=== PATIENT | female | born 1950 | race Caucasian/White ===

== ENCOUNTER 2017-03-01 08:50 | Emergency (ER) | payer OTHER ==
[~2017-03-01] VITALS: Ht 158.8 cm; Wt 112.1 kg
[~2017-03-01 08:50] MED LIST: ADVAIR 500/501 DISK IH; HYDROCHLOROTHIA25 MG PO; LACTULOSE10 GM/151 PO; LATANOPROST2.5 ML BOTH EYES; MIRALAX17 GM PO; PROAIR HFA8.5 GM IH; SIMVASTATIN40 MG PO
[2017-03-01 11:41] LABS: EOSINOPHIL (%) 3.7 % (0-5); EOSINOPHIL COUNT 0.2 K/uL (0-0.3); HEMATOCRIT 42.7 % (36.0-46.0); IMMATURE GRANULOCYTE (%) 0.3 % (0.0-0.7); INSTRUMENT ABS NEUTROPHIL CT 3.4 K/uL; LYMPHOCYTE COUNT 1.7 K/uL (1.0-2.8); MCH 34.5 PG (29.0-34.0); MCHC 33.3 G/DL (30.0-36.0); MCV 103.9 FL (83-99); MEAN PLAT.VOLUME 10.9 uM^3 (9.5-12.4); MONOCYTE (%) 11.2 % (3-12); MONOCYTE COUNT 0.7 K/uL (0-0.8); NEUTROPHIL COUNT 3.4 K/uL (1.8-6.4); PLATELET COUNT 119 K/uL (156-360); RBC DIS.WIDTH-CV 12.5 % (11.8-14.6); RBC DIS.WIDTH-SD 48.1 % (39-53); RED BLOOD COUNT 4.11 M/uL (3.80-5.20)
[2017-03-01 11:52] LABS: CHLORIDE 105 mEq/L (99-109); POTASSIUM 3.6 mEq/L (3.7-5.4); SODIUM 140 mEq/L (136-147)
[2017-03-01 11:54] LABS: GLUCOSE 112 mg/dL (70-99)
[2017-03-01 11:55] LABS: ANION GAP 12 MEQ/L (2-14)
[2017-03-01 11:58] LABS: GFR ESTIMATE (CALCULATED) > 59 mL/min/
[2017-03-01 11:59] LABS: UREA NITROGEN (BUN) 16 mg/dL (9-23)
[2017-03-01] MEDS ORDERED: CLEOCIN300 MG PO (12:24)
[2017-03-01 12:30] LABS: ADD MIUA? YES; BILIRUBIN NEGATIVE; BLOOD NEGATIVE; COLOR YELLOW ((YELLOW)); GLUCOSE (STRIP) NEGATIVE; KETONES NEGATIVE; LEUKOCYTES SMALL; NITRITE NEGATIVE; PROTEIN (STRIP) NEGATIVE; SPECIFIC GRAVITY 1.024 (1.000-1.030)
[2017-03-01 12:44] LABS: BACTERIA NONE SEEN /HPF; EPITHELIAL CELLS 4+ /HPF; MUCUS 2+ /LPF; UCUL ADDED? YES; WHITE BLOOD CELLS 15-20 /HPF (0-5)
[2017-03-01 13:17] VITALS: BP 187/59
== END 2017-03-01 13:18 | disposition home or self-care (01) ==
LOC: EME 08:50
PROVIDERS: Emergency Medicine
DX: L03.116 Cellulitis of left lower limb (principal); L03.115 Cellulitis of right lower limb; E78.5 Hyperlipidemia, unspecified; J44.9 Chronic obstructive pulmonary disease, unspecified
CPT/HCPCS: 71010; 80048; 81003; 83605; 85025; 87040; 87086; 99281; 99285; J7030

== ENCOUNTER 2017-05-05 07:29 | Emergency (ER) | payer OTHER ==
[~2017-05-05] VITALS: Ht 157.5 cm; Wt 108.6 kg
[~2017-05-05 07:29] MED LIST changes: +CLEOCIN300 MG PO
[2017-05-05 08:12] LABS: EOSINOPHIL (%) 3.7 % (0-5); EOSINOPHIL COUNT 0.2 K/uL (0-0.3); HEMATOCRIT 45.3 % (36.0-46.0); IMMATURE GRANULOCYTE (%) 0.2 % (0.0-0.7); LYMPHOCYTE COUNT 2.2 K/uL (1.0-2.8); MCH 34.3 PG (29.0-34.0); MCHC 32.9 G/DL (30.0-36.0); MCV 104.4 FL (83-99); MEAN PLAT.VOLUME 10.7 uM^3 (9.5-12.4); MONOCYTE (%) 15.5 % (3-12); NEUTROPHIL (%) 45.7 % (45-76); PLATELET COUNT 136 K/uL (156-360); RBC DIS.WIDTH-CV 12.9 % (11.8-14.6); RBC DIS.WIDTH-SD 50.2 % (39-53); RED BLOOD COUNT 4.34 M/uL (3.80-5.20); WHITE BLOOD COUNT 6.5 K/uL (4.1-10.2)
[2017-05-05 08:15] LABS: CHLORIDE 107 mEq/L (99-109); POTASSIUM 4.1 mEq/L (3.7-5.4); SODIUM 142 mEq/L (136-147)
[2017-05-05 08:17] LABS: GLUCOSE 116 mg/dL (70-99)
[2017-05-05 08:18] LABS: ANION GAP 9 MEQ/L (2-14)
[2017-05-05 08:21] LABS: GFR ESTIMATE (CALCULATED) > 59 mL/min/
[2017-05-05 08:22] LABS: UREA NITROGEN (BUN) 17 mg/dL (9-23)
[2017-05-05] MEDS ORDERED: CLEOCIN300 MG PO (08:39)
[2017-05-05 08:50] VITALS: BP 156/64
== END 2017-05-05 09:23 | disposition home or self-care (01) ==
LOC: EME 07:29
PROVIDERS: Emergency Medicine
DX: L03.116 Cellulitis of left lower limb (principal); L03.115 Cellulitis of right lower limb; E78.00 Pure hypercholesterolemia, unspecified; J44.9 Chronic obstructive pulmonary disease, unspecified
CPT/HCPCS: 80048; 85025; 99281; 99284

== ENCOUNTER 2017-09-14 08:52 | Emergency (ER) | payer OTHER ==
[~2017-09-14] VITALS: Ht 157.5 cm; Wt 113.9 kg
[2017-09-14 09:34] LABS: HEMATOCRIT 41.9 % (36.0-46.0); HEMOGLOBIN 14.6 G/DL (11.9-15.5); MCH 36.4 PG (29.0-34.0); MCHC 34.8 G/DL (30.0-36.0); MCV 104.5 FL (83-99); PLATELET COUNT 93 K/uL (156-360); RBC DIS.WIDTH-CV 13.4 % (11.8-14.6); RBC DIS.WIDTH-SD 51.8 % (39-53); RED BLOOD COUNT 4.01 M/uL (3.80-5.20); WHITE BLOOD COUNT 5.9 K/uL (4.1-10.2)
[2017-09-14 09:44] LABS: CHLORIDE 100 mEq/L (99-109); POTASSIUM 3.6 mEq/L (3.7-5.4); SODIUM 139 mEq/L (136-147)
[2017-09-14 09:46] LABS: GLUCOSE 123 mg/dL (70-99)
[2017-09-14 09:50] LABS: CREATININE 0.8 mg/dL (0.6-1.3); GFR ESTIMATE (CALCULATED) > 59 mL/min/
[2017-09-14 09:51] LABS: UREA NITROGEN (BUN) 18 mg/dL (9-23)
[2017-09-14] MEDS ORDERED: KEFLEX500 MG PO (10:24)
[2017-09-14 10:38] VITALS: BP 196/92
== END 2017-09-14 10:39 | disposition home or self-care (01) ==
LOC: EME 08:52
PROVIDERS: Emergency Medicine
DX: L03.115 Cellulitis of right lower limb (principal); L03.116 Cellulitis of left lower limb; I89.0 Lymphedema, not elsewhere classified; E78.5 Hyperlipidemia, unspecified; J44.9 Chronic obstructive pulmonary disease, unspecified; E66.9 Obesity, unspecified; Z68.42 Body mass index [BMI] 45.0-49.9, adult
CPT/HCPCS: 80048; 85027; 99281; 99284

== ENCOUNTER 2017-11-19 11:57 | Inpatient (IN) | payer OTHER ==
[~2017-11-19] VITALS: Ht 160 cm; Wt 112.4 kg
[~2017-11-19 11:57] MED LIST changes: +KEFLEX500 MG PO
[2017-11-19 12:29] LABS: BASOPHIL (%) 0.4 % (0-1); EOSINOPHIL (%) 2.6 % (0-5); EOSINOPHIL COUNT 0.2 K/uL (0-0.3); HEMATOCRIT 43.2 % (36.0-46.0); HEMOGLOBIN 15.3 G/DL (11.9-15.5); IMMATURE GRANULOCYTE (%) 0.5 % (0.0-0.7); LYMPHOCYTE COUNT 2.4 K/uL (1.0-2.8); MCHC 35.4 G/DL (30.0-36.0); MCV 101.6 FL (83-99); MONOCYTE (%) 12.8 % (3-12); MONOCYTE COUNT 1.1 K/uL (0-0.8); NEUTROPHIL (%) 55.7 % (45-76); NEUTROPHIL COUNT 4.7 K/uL (1.8-6.4); PLATELET COUNT 120 K/uL (156-360); RBC DIS.WIDTH-CV 13.4 % (11.8-14.6); RBC DIS.WIDTH-SD 50.7 % (39-53); RED BLOOD COUNT 4.25 M/uL (3.80-5.20); WHITE BLOOD COUNT 8.5 K/uL (4.1-10.2)
[2017-11-19 12:38] LABS: ALBUMIN 3.6 g/dL (3.2-4.8); CHLORIDE 94 mEq/L (99-109); POTASSIUM 2.6 mEq/L (3.7-5.4); SODIUM 136 mEq/L (136-147)
[2017-11-19 12:41] LABS: GLUCOSE 331 mg/dL (70-99); TOTAL PROTEIN 7.1 g/dL (6.4-8.3)
[2017-11-19 12:43] LABS: TOTAL BILIRUBIN 1.1 mg/dL (0.0-1.0)
[2017-11-19 12:44] LABS: ALKALINE PHOSPHATASE 179 IU/L (3-129); GFR ESTIMATE (CALCULATED) > 59 mL/min/
[2017-11-19 12:45] LABS: UREA NITROGEN (BUN) 20 mg/dL (9-23)
[2017-11-19 12:46] LABS: AST (GOT) 50 IU/L (2-34)
[2017-11-19 12:47] LABS: ALT (GPT) 34 IU/L (3-49)
[2017-11-19 14:55] LABS: MAGNESIUM 2.2 mg/dL (1.3-2.7)
[2017-11-19] MEDS ORDERED: MONTELUKAST SOD10 MG PO (16:20)
[2017-11-19] MEDS ORDERED: K-DUR20 MEQ PO (16:22)
[2017-11-19] MEDS ORDERED: FUROSEMIDE20 MG PO (16:23)
[2017-11-19] MEDS ORDERED: METOLAZONE5 MG PO (16:26)
[2017-11-19 17:16] VITALS: BP 142/65
[2017-11-19 19:25] VITALS: BP 154/64
[2017-11-19 23:16] VITALS: BP 141/61
[2017-11-20 03:45] VITALS: BP 168/62
[2017-11-20 06:05] LABS: BASOPHIL (%) 0.6 % (0-1); EOSINOPHIL (%) 3.4 % (0-5); EOSINOPHIL COUNT 0.2 K/uL (0-0.3); HEMATOCRIT 42.5 % (36.0-46.0); HEMOGLOBIN 14.4 G/DL (11.9-15.5); IMMATURE GRANULOCYTE (%) 0.3 % (0.0-0.7); LYMPHOCYTE (%) 26.2 % (15-42); LYMPHOCYTE COUNT 1.6 K/uL (1.0-2.8); MCH 34.4 PG (29.0-34.0); MCHC 33.9 G/DL (30.0-36.0); MCV 101.7 FL (83-99); MONOCYTE (%) 12.3 % (3-12); MONOCYTE COUNT 0.8 K/uL (0-0.8); NEUTROPHIL (%) 57.2 % (45-76); NEUTROPHIL COUNT 3.6 K/uL (1.8-6.4); PLATELET COUNT 109 K/uL (156-360); RBC DIS.WIDTH-CV 13.4 % (11.8-14.6); RBC DIS.WIDTH-SD 51.3 % (39-53); RED BLOOD COUNT 4.18 M/uL (3.80-5.20); WHITE BLOOD COUNT 6.3 K/uL (4.1-10.2)
[2017-11-20 06:32] LABS: CHLORIDE 102 MEQ/L (99-109); CREATININE 0.7 MG/DL (0.6-1.3); GFR ESTIMATE (CALCULATED) > 59 mL/min/; POTASSIUM 2.7 MEQ/L (3.7-5.4); SODIUM 140 MEQ/L (136-147); UREA NITROGEN (BUN) 16 mg/dL (9-23)
[2017-11-20 06:35] LABS: GLUCOSE 137 mg/dL (70-99)
[2017-11-20 07:12] VITALS: BP 134/63
[2017-11-20 10:09] LABS: HEMOGLOBIN A1c (GLYCOHEMOGLOB) 6.6 % (Below 5.7)
[2017-11-20 15:18] VITALS: BP 155/65
[2017-11-20 23:40] VITALS: BP 143/66
[2017-11-21 07:41] LABS: CHLORIDE 104 MEQ/L (99-109); CREATININE 0.6 MG/DL (0.6-1.3); GFR ESTIMATE (CALCULATED) > 59 mL/min/; GLUCOSE 157 mg/dL (70-99); MAGNESIUM 2.2 mg/dl (1.3-2.7); SODIUM 139 MEQ/L (136-147); UREA NITROGEN (BUN) 17 mg/dL (9-23)
[2017-11-21 07:44] LABS: POTASSIUM 3.8 MEQ/L (3.7-5.4)
[2017-11-21 07:58] VITALS: BP 154/71
== END 2017-11-21 12:25 | disposition home or self-care (01) | DRG 607 ==
LOC: EME 11:57 → EDOF 14:13 → 2EAST 14:13 → EDOF 14:27 → ENRESERV 14:28 → 2EAST 16:41
PROVIDERS: Hospitalist; Nurse Practitioner Family
DX: I89.0 Lymphedema, not elsewhere classified (principal); E87.6 Hypokalemia; D69.6 Thrombocytopenia, unspecified; R74.8 Abnormal levels of other serum enzymes; I87.8 Other specified disorders of veins; R23.8 Other skin changes; R60.0 Localized edema; E11.9 Type 2 diabetes mellitus without complications; J44.9 Chronic obstructive pulmonary disease, unspecified; I10 Essential (primary) hypertension; E78.5 Hyperlipidemia, unspecified; E66.01 Morbid (severe) obesity due to excess calories; Z68.41 Body mass index [BMI] 40.0-44.9, adult
CPT/HCPCS: 80048; 80053; 82948; 83036; 83735; 83880; 84132 91; 85025; 87040; 87641; 93970; 94640; 94640 76; 99202; 99281; 99285; J1644; J1815; J2543; J3370; J3480; J7030; J7050